=== PATIENT | male | born 1950 | race Caucasian/White ===

== ENCOUNTER 2019-10-09 09:00 | Outpatient (RCR) | payer OTHER, SELFPAY ==
--- NOTE | 2019-09-11 14:29 | PTOPEVAL ---
PHYSICAL THERAPY EVALUATION AND PLAN OF CARE Thank you for referring this patient to [facility]. I recommend Mario participate in skilled PT 2x/week for 4 weeks. Please review, sign, date and return this plan of care KRISS. I agree with and certify that the following plan of care is medically necessary. Referring Physician Date Attending Provider: Nevaeh Michaud DO Evaluation Outpatient Past Medical History Neurological History Hx Parkinson's Disease Yes: tremors; testing for reliability Cardiovascular History Hx Angina Yes Hx Cardiac Surgery Yes Hx Chest Pain Yes Hx Coronary Artery Bypass Graft Yes Hx Coronary Stent Yes: 5x Hx Hypercholesterolemia Yes Hx Hypertension Yes Respiratory History Hx Asthma Yes: cat asthma Gastrointestinal History Hx Gastroesophageal Reflux Disease Yes Hx Hernia Yes: bilateral inguinal hernia Genitourinary History Hx Kidney Stones Yes Hx Renal Disease Yes: stage 3 Musculoskeletal History Hx Arthritis Yes Hx Back Injury Yes Hx Back Pain Yes Hx Degenerative Disk Disease Yes Hx Fractures Yes: metacarpal Rt #3/LT [place] Hx Other Musculoskeletal Disorders Yes: ruptured discs 3-4-5/left thumb tendon surg Hematological History Hx Hematological Disorders No Significant History Endocrine History Hx Diabetes Yes: managed with insulin/ medication HEENT History Hx Cataracts Yes: bilateral cataracts removed Integumentary History Hx Other Skin Disorders Yes: toenails 1 & 2 removed bilat feet/Rad Enma (rash) Reproductive History Hx Reproductive Disorders No Significant History Psychosocial History Hx Psychiatric Disorders No Significant History Pain History History of Any Previous or Ongoing No Significant History Instance of Pain Anesthesia History Hx Anesthesia Reactions No Significant History Evaluation Information Problem Diagnosis chronic low back pain Onset 08/16/2019 Subjective Information Mario is here today following Query Text:As Reported By Patient/ an episode of severe low back Family pain that was radiating into his abdomen. He was diagnosed with a herniated disc in low back, but Dr. Lizarraga confirmed there is no hernatied disc. He currentl states he feels back to normal but that his
--- NOTE | 2019-10-09 09:44 | PTOPEVAL ---
PHYSICAL THERAPY DISCHARGE REPORT Thank you for referring this patient to [facility]. I recommend discharge from PT at this time with HEP. Patient agrees to continue HEP and he has the support of his . Please review, sign, date and return this discharge summary KRISS. I agree with and certify that the following plan of care is medically necessary. Referring Physician Date Attending Provider: Nevaeh Michaud DO Discharge Diagnosis chronic low back pain Onset 08/16/2019 Subjective Information Mario is here participating Query Text:As Reported By Patient/ in physical therapy after Family participating in 8 visits of physical therapy for back pain and impaired balance. Reports his back is ok. He went to [employer] yesterday and walking from car to park, slowly and had to rest but made it. Timing of Pain Assessment Pre-Treatment Self Report Self Report Pain Level 0 Lumbar ROM Lumbar Flexion Active Ankle Query Text:Hands to: Lumbar Extension (0-40) 6 Lateral Rotation Right (0-45) 25 Lateral Rotation Left (0-45) 25 Hip Strength Bilateral Hip Flexion Strength 4 Good Hip Extension Strength 4- Good - Hip Abduction Strength 3 Fair Hip Adduction Strength 3+ Fair + Knee Strength Bilateral Knee Flexion Strength 5 Normal Knee Extension Strength 5 Normal Balance Assessment Sitting to Standing Independent w/out Hands Unsupported Stance Ability Safely- 2 minutes Sitting Unsupported, Feet on Floor Safely- 2 minutes Standing to Sitting Assist, Control w/Hands Transfer Ability Safely, Hand Use Unsupported Stance- Eyes Closed Safely, 10 seconds Unsupported Stance- Feet Together Independent, 1 minute Reaching Forward while Standing Safely, 5 inches dining room supervisor Object From Floor Independent/Safe Look Behind Shoulder - Standing Shifts Weight Unilateral Turning 360 Degrees Turns Bilateral, < 4 secs Unsupported Stance, Alternating Feet on (I)- 8 Steps in 20 secs Stair Unsupported Tandem Stance Small Step- 30 seconds Unilateral Leg Stance Lifts Leg/Holds > 3 secs MCNAIR Balance Evaluation Total Score 48/56 Timed Up and Go Test (TUG) (Seconds) 8 Assistive Devices None 5 Time Sit to Stand Time in Seconds 17.81 Gait Assessment Total Distance Walked (feet) 454 Number of Breaks Required 0 2 Minute Walk Test Comments 3.7ft/second Clinical Summary
== END 2019-10-09 11:14 | disposition home or self-care (01) ==
LOC: ANHPT 09:00
PROVIDERS: PCP Family Medicine; Visit Provider Family Medicine
DX: M54.5 Low back pain (principal); G89.29 Other chronic pain
CPT/HCPCS: 97110; 97162

== ENCOUNTER → 2021-01-23 00:25 | Outpatient (CLI) | payer OTHER, SELFPAY ==
[2021-01-23 19:27] LABS: SARS-CoV-2 RNA PCR Negative
== END ==
PROVIDERS: PCP Family Medicine; Visit Provider Internal Medicine Gastroenterology
DX: Z01.812 Encounter for preprocedural laboratory examination (principal); Z20.822 Contact with and (suspected) exposure to COVID-19
CPT/HCPCS: C9803; U0003; U0005

== ENCOUNTER 2021-01-26 00:50 | Day surgery (SDC) | payer OTHER, SELFPAY ==
[2021-01-13 13:17] VITALS: BMI 29.6
[2021-01-26 07:24] VITALS: BP 126/64; PULSE 63; RESP 18; TEMP 35.9; O2SAT 99; BMI 28.1
[2021-01-26] MEDS: LACTATED RINGERS 1,000 ML 150 ML IV CONT (07:31)
[2021-01-26 07:44] LABS: Glucose Point of Care 168 mg/dl (65-105)
--- NOTE | 2021-01-26 07:48 | WPDGICN ---
Assessment and Plan Assessment and plan (1) Screening for colon cancer: Code(s): Z12.11 - Encounter for screening for malignant neoplasm of colon Status: Acute Assessment and Plan: Patient presents for screening colonoscopy is been 10 years since last exam. He has lost some weight. No other specific GI symptoms encountered. (2) Weight loss: Code(s): R63.4 - Abnormal weight loss Status: Acute GI Consult Note Consult date/time: 01/26/21 07:48 HPI: Mario Trivedi is a 70 year old male presents for follow-up colonoscopy. Patient's last exam was 2008. Patient's current weight appetite bowel movements are normal. Patient denies abdominal pain. Does report some weight loss over recent years. Family history is noncontributory. He denies any abdominal pain or bleeding. Review of Systems Review of Systems: All systems reviewed & are unremarkable except as noted in HPI and below PMFSH Past Medical History Medical History Asthma Atherosclerotic heart disease of [place]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 pectoris Bronchitis CAD (coronary artery disease) Chronic back pain Chronic kidney disease, stage 3 (moderate) GERD (gastroesophageal reflux disease) HTN (hypertension) Hypertensive chronic kidney disease with stage 1 through stage 4 chronic kidney disease, or unspecified chronic kidney disease Hypoglycemia Metabolic syndrome Mixed hyperlipidemia Normal colonoscopy (~04/28/09) Old myocardial infarction Other spondylosis, lumbar region Polyneuropathy in diabetes Right hand fracture Type 2 diabetes mellitus with kidney complication, 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tance use type: does not use Living arrangements: with family Gender identity (if verbalized by the patient): Male Spiritual care concerns: No Agree to blood products: Yes Meds Home Medications and Allergies Home Medications Medication Instructions Recorded Confirmed Type aspirin 81 mg tablet,delayed 81 mg PO HS 06/17/19 01/13/21 History release carvedilol phosphate 40 mg 40 mg PO DAILY 06/17/19 01/26/21 History capsule,[id number] multiphase cholecalciferol (vitamin D3) 125 5,000 unit PO DAILY 06/17/19 01/13/21 History mcg (5,000 unit) tablet clopidogrel 75 mg tablet 75 mg PO DAILY 06/17/19 01/26/21 History insulin aspart U-100 100 unit/mL 20 unit SUB-Q TID 06/17/19 01/13/21 History (3 mL) subcutaneous pen insulin syringe-needle U-100 0.5 #1 each 06/17/19 06/23/20 History mL 30 gauge x 1/2 metformin 1,000 mg tablet 1,000 mg PO BID 06/17/19 01/13/21 History Jardiance 10 mg PO DAILY 08/09/19 01/13/21 History cyanocobalamin (vitamin B-12) 100 mcg PO HS 08/09/19 01/13/21 History glucagon 1 mg SUBCUT PRN PRN 08/09/19 01/13/21 History nitroglycerin 0.4 mg SUBLINGUAL PRN PRN 08/09/19 01/13/21 History primidone 50 mg tablet 50 mg PO .QHS tablet 10/15/19 01/13/21 History insulin degludec 100 unit/mL (3 36 unit SUB-Q .QHS ml 02/17/20 01/21/21 History mL) subcutaneous pen amlodipine 5 mg-benazepril 20 mg 1 cap PO HS 06/23/20
--- NOTE | 2021-01-26 08:11 | WPDANESEPPF ---
Anes - Initial Pre Proc Eval Procedure: Operation Date: 01/26/21 08:30 Proposed Procedures p Screening Colonoscopy - Mac Burgos MD Date/Time: 01/26/21 08:11 Surgeon: Mac Burgos MD Pre Op Diagnosis: neoplasm screening Patient Data Age: 70 Gender: M Height: 1.83 m Weight: 94.2 kg Last Vital Signs Temp 96.7 F L 01/26/21 07:24 Pulse 63 01/26/21 07:24 Resp 18 01/26/21 07:24 BP 126/64 01/26/21 07:24 Pulse Ox 99 01/26/21 07:24 Allergies Allergy/AdvReac Type Severity Reaction Status Date / Time atorvastatin Allergy Unknown myalgias,pa Verified 01/26/21 07:22 rathesias Home Medications Medication Instructions Recorded Confirmed Type aspirin 81 mg tablet,delayed 81 mg PO HS 06/17/19 01/13/21 History release carvedilol phosphate 40 mg 40 mg PO DAILY 06/17/19 01/26/21 History capsule,[id number] multiphase cholecalciferol (vitamin D3) 125 5,000 unit PO DAILY 06/17/19 01/13/21 History mcg (5,000 unit) tablet clopidogrel 75 mg tablet 75 mg PO DAILY 06/17/19 01/26/21 History insulin aspart U-100 100 unit/mL 20 unit SUB-Q TID 06/17/19 01/13/21 History (3 mL) subcutaneous pen insulin syringe-needle U-100 0.5 #1 each 06/17/19 06/23/20 History mL 30 gauge x 1/2 metformin 1,000 mg tablet 1,000 mg PO BID 06/17/19 01/13/21 History Jardiance 10 mg PO DAILY 08/09/19 01/13/21 History cyanocobalamin (vitamin B-12) 100 mcg PO HS 08/09/19 01/13/21 History glucagon 1 mg SUBCUT PRN PRN 08/09/19 01/13/21 History nitroglycerin 0.4 mg SUBLINGUAL PRN PRN 08/09/19 01/13/21 History primidone 50 mg tablet 50 mg PO .QHS tablet 10/15/19 01/13/21 History insulin degludec 100 unit/mL (3 36 unit SUB-Q .QHS ml 02/17/20 01/21/21 History mL) subcutaneous pen amlodipine 5 mg-benazepril 20 mg 1 cap PO HS 06/23/20 01/13/21 History capsule rosuvastatin 5 mg tablet 5 mg PO HS #30 tablet 12/28/20 01/13/21 Rx Laboratory Tests 01/26/21 07:33 POC Capillary Glucose 168 mg/dl H mg/dl (65-105) Patient hx anesthesia problems: none Family hx anesthesia problems: none PMFSH Past Medical History Medical History Asthma Atherosclerotic heart disease of [place]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 pectoris Bronchitis CAD (coronary artery disease) Chronic back pain Chronic kidney disease, stage 3 (moderate) GERD (gastroesophageal reflux disease) HTN (hypertension) Hypertensive chronic kidney disease with stage 1 through stage 4 chronic kidney disease, or unspecified chronic kidney disease Hypoglycemia Metabolic syndrome Mixed hyperlipidemia Normal colonoscopy (~04/28/09) Old myocardial infarction Other spondylosis, lumbar region Polyneuropathy in diabetes Right hand fracture Type 2 diabetes mellitus with kidney complication, 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tance use type: does not use Living arrangements: with family Gender identity (if verbalized by the patient): Male Spiritual care concerns: No Agree to blood products: Yes Anes - Eval Final PreProcedure Day of Procedure 01/26/21 08:11 Patient
[2021-01-26] MEDS: SIMETHICONE ORAL SUSPENSION 20 MG/0.3 ML 30 ML BOTTLE 0.6 ML IRRIGATION (08:51)
[2021-01-26 09:02] VITALS: BP 101/64; PULSE 64; RESP 19; O2SAT 99
[2021-01-26 09:12] VITALS: BP 110/65; PULSE 62; RESP 22; O2SAT 99
[2021-01-26 09:23] VITALS: BP 128/74; PULSE 64; RESP 20; O2SAT 99
[2021-01-26 09:43] LABS: Glucose Point of Care 161 mg/dl (65-105)
== END 2021-01-26 09:50 | disposition home or self-care (01) ==
PROVIDERS: PCP Family Medicine; Visit Provider Internal Medicine Gastroenterology
PROC: 0DJD8ZZ Inspection of Lower Intestinal Tract, Via Natural or Artificial Opening Endoscopic (ICD-10-PCS; CPT 45378; principal; 2021-01-26 08:30)
DX: Z12.11 Encounter for screening for malignant neoplasm of colon (principal); R63.4 Abnormal weight loss; K63.5 Polyp of colon; K64.8 Other hemorrhoids; I12.9 Hypertensive chronic kidney disease with stage 1 through stage 4 chronic kidney disease, or unspecified chronic kidney disease; N18.30 Chronic kidney disease, stage 3 unspecified; I25.10 Atherosclerotic heart disease of native coronary artery without angina pectoris; J45.909 Unspecified asthma, uncomplicated; E11.22 Type 2 diabetes mellitus with diabetic chronic kidney disease; E11.39 Type 2 diabetes mellitus with other diabetic ophthalmic complication; E11.29 Type 2 diabetes mellitus with other diabetic kidney complication; E78.2 Mixed hyperlipidemia; K21.9 Gastro-esophageal reflux disease without esophagitis; I25.2 Old myocardial infarction; E11.42 Type 2 diabetes mellitus with diabetic polyneuropathy; Z95.5 Presence of coronary angioplasty implant and graft; Z79.82 Long term (current) use of aspirin; Z79.4 Long term (current) use of insulin; Z79.84 Long term (current) use of oral hypoglycemic drugs
CPT/HCPCS: 45385; 82948; 88305; J2704; J7120

== ENCOUNTER 2021-07-09 10:24 | Observation (INO) | payer OTHER, SELFPAY ==
[2021-07-09] VITALS (29 sets, daily range): BP systolic 120–184; BP diastolic 65–93; PULSE 64–69; RESP 12–18; TEMP 36.5; O2SAT 95–100; BMI 27.6
--- NOTE | ~2021-07-09 | CT_ITS ---
EXAMINATION: CT brain wo con EXAM DATE: 07/09/2021 15:57 INDICATION: Weakness, fatigue for several weeks. Parkinson's. TECHNIQUE: Spiral CT of the head was performed without contrast. Axial, coronal and sagittal images were reviewed. The dose-length product (DLP) for this examination was 681.00 mGy-cm. The exposure w as tailored according to patient size, and iterative reconstruction (ASIR) was used as additional dos e reduction technique. There is no prior study for comparison. FINDINGS: There is no acute intraparenchymal hemorrhage. No evidence of intraparenchymal brain mass lesion. No evidence of acute infarction. Please note that initial head CT has limited sensitivity f or small or acute infarctions. There is mild periventricular and subcortical hypodensity, nonspecific but probably related to small vessel ischemic disease. There is mild to moderate prominence of the sulci and ventricles related to cerebral atrophy. There is intracranial carotid arteriosclerosis. There are no extra-axial collections. There is no mass effect or midline shift. Patient has had bi lateral ocular lens surgery. Soft tissue is unremarkable. The visualized sinuses and mastoid air ce lls are well aerated. IMPRESSION: 1. No acute intracranial findings. 2. Chronic age related findings. Reviewed, dictated and finalized at location B. ICIAN OFFICE ASSISTANT
--- NOTE | ~2021-07-09 | XR_ITS ---
EXAMINATION: XR chest 1V portable 07/09/2021 13:38 INDICATION: Weakness. PROCEDURE: AP portable chest COMPARISON: Comparison to multiple prior studies sequentially, with oldest reviewed study dated 02/17. FINDINGS: The lungs are clear. The cardiomediastinal silhouette is within normal limits. There are no pleural effusions. There is no pneumothorax suspected. IMPRESSION: 1: NO ACUTE CARDIOPULMONARY DISEASE. Reviewed, dictated and finalized at location A. K DRIVER HEAVY
--- NOTE | 2021-07-09 13:07 | ECG_ITS ---
Measurements Intervals [place] Rate: 64 P: 14 WI: 154 QRS: 41 QRSD: 93 T: 29 QT: 421 QTc: 436 Interpretive Statements SINUS RHYTHM BASELINE ARTIFACT- I, II, III, AVR, V5 NORMAL ECG Electronically Signed On 07-09-2021 13:45:36 RADIOGRAPHER TECHNOLOGIST by Hal Harp D.O.
--- NOTE | 2021-07-09 13:29 | ED.RECABL ---
HPI - Recheck/Abnormal Lab/Rx General Chief Complaint: Recheck/Abnormal Lab/Rx Stated Complaint: Low Blood Count Time Seen by Provider: 07/09/21 12:33 Source: patient, family, RN notes reviewed and old records reviewed Mode of arrival: ambulatory Limitations: no limitations History of Present Illness HPI narrative: This is a 71 year old male with history of chronic anemia, DM, chronic kidney disease who presents for evaluation of anemia and possible blood transfusion. Patient had blood word drawn 3 days ago by his PCP and it showed his hemoglobin to be 8.3. He states his PCP told him to come to ER for blood transfusion. He denies any gross blood loss. He reports fatigue and shortness of breath for 1 year. His states patient was started a new medication weeks ago and 2 weeks ago he was having nausea and vomiting. He denies having nausea, vomiting or diarrhea in 2 weeks. He reports hard stool but denies melena. He denies any chest pain, cough or fever. He states he has never been told that he was anemic before. Related Data Home Medications Medication Instructions Recorded Confirmed aspirin 81 mg tablet,delayed 81 mg PO HS 06/17/19 07/09/21 release cholecalciferol (vitamin D3) 125 5,000 unit PO DAILY 06/17/19 07/09/21 mcg (5,000 unit) tablet clopidogrel 75 mg tablet 75 mg PO DAILY 06/17/19 07/09/21 insulin aspart U-100 100 unit/mL 20 unit SUB-Q TID 06/17/19 07/09/21 (3 mL) subcutaneous pen insulin syringe-needle U-100 0.5 #1 each 06/17/19 07/09/21 mL 30 gauge x 1/2 Jardiance 10 mg PO DAILY 08/09/19 07/09/21 cyanocobalamin (vitamin B-12) 100 mcg PO HS 08/09/19 07/09/21 glucagon 1 mg SUBCUT PRN PRN 08/09/19 07/09/21 nitroglycerin 0.4 mg SUBLINGUAL PRN PRN 08/09/19 07/09/21 primidone 50 mg tablet 50 mg PO .QHS tablet 10/15/19 07/09/21 insulin degludec 200 unit/mL (3 30 unit SUBCUT DAILY ml 07/09/21 07/09/21 mL) subcutaneous pen metformin 500 mg tablet 500 mg PO BID 07/09/21 07/09/21 propranolol 40 mg tablet 40 mg PO Q12H 07/09/21 07/09/21 Allergies Allergy/AdvReac Type Severity Reaction Status Date / Time atorvastatin Allergy Unknown myalgias,pa Verified 07/09/21 09:09 rathesias Review of Systems Review of Systems: All systems reviewed & are unremarkable except as noted in HPI and below PMFSH Past Medical History Medical History Asthma Atherosclerotic heart disease of [place]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 pectoris Bronchitis CAD (coronary artery disease) Chronic back pain Chronic kidney disease, stage 3 (moderate) GERD (gastroesophageal reflux disease) Hepatitis C antibody test negative (01/17/17) HTN (hypertension) Hypertensive chronic kidney disease with stage 1 through stage 4 chronic kidney disease, or unspecified chronic kidney disease Hypoglycemia Metabolic syndrome Mixed hyperlipidemia Normal colonoscopy (~04/28/09) Old myocardial infarction Other spondylosis, lumbar region Polyneuropathy in diabetes Right hand fracture Type 2 diabetes mellitus with kidney complication, 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
[2021-07-09 14:01] LABS: Alanine Aminotransferase 11 U/L (4-50); Albumin Level 3.7 g/dL (3.5-5.1); Alkaline Phosphatase 67 U/L (38-126); Anion Gap 9 mmol/L (8-16); Aspartate Amino Transferase 25 U/L (17-59); Bilirubin,Total 0.5 mg/dL (0.2-1.3); Blood Urea Nitrogen 40 mg/dL (9-20); Calcium 8.5 mg/dL (8.4-10.2); Carbon Dioxide 19 mmol/L (22-30); Chloride 102 mmol/L (98-107); Estimated CRCL calculation 22 ml/min; Estimated Glomerular Filt Rate 21; Glucose 88 mg/dL (65-110); Potassium 4.2 mmol/L (3.4-5.0); Sodium 130 mmol/L (137-145)
[2021-07-09] MEDS: SODIUM CHLORIDE 0.9% IV 500 ML 999 ML IV CONT (15:00)
[2021-07-09 15:03] LABS: Folic Acid 9.2 ng/mL (2.76->20); Vitamin B12 > 1000.0 pg/mL (239-931)
[2021-07-09 15:12] LABS: Basophils Percent Auto 0.4 % (0.2-1.2); Eosinophils Absolute Auto 0.3 K/mm3 (0-0.3); Eosinophils Percent Auto 4.9 % (0-4.4); Hematocrit 24.8 % (42.0-52.0); Hemoglobin 8.1 g/dL (14.0-18.0); Immature Granulocyte Absolute 0.02 K/mm3 (0.00-0.031); Immature Granulocyte Percent A 0.4 % (0-0.5); Lymphocytes Absolute Auto 1.64 K/mm3 (0.9-3.2); Lymphocytes Percent Auto 32.3 % (18.3-44.2); Mean Corpuscular HGB Conc 32.7 g/dl (32-36); Mean Corpuscular Hemoglobin 32.9 pg (26-34); Mean Corpuscular Volume 100.8 fl (80-100); Mean Platelet Volume 10.6 fl (7.4-10.4); Monocytes Absolute Auto 0.2 K/mm3 (0.1-0.6); Monocytes Percent Auto 4.3 % (2.6-8.5); Neutrophils Absolute Auto 2.9 K/mm3 (1.3-6.7); Neutrophils Percent Auto 57.7 % (45.5-73.1); Platelet Count Result 208 k/mm3 (150-375); Red Blood Count 2.46 M/mm3 (4.6-6.20); Red Cell Distribution Width 15.5 % (11.5-14.5); White Blood Count 5.1 K/mm3 (4.5-10.0)
[2021-07-09 15:30] LABS: INR 0.9; Partial Thromboplastin Time 27.9 SECONDS (22.3-36.8); Prothrombin Time 12.4 Seconds (11.1-14.7)
--- NOTE | 2021-07-09 16:06 | PC.NURSE ---
patient refused catheter. He is still unable to provide urine sample. Rn notified. Hugh ledesma ed tech
[2021-07-09 16:46] LABS: Add Urine Microscopic? YES; Appearance Urine Clear (Clear); Bilirubin Urine Negative (Negative); Blood Urine Negative (Negative); Color Urine Yellow (Yellow); Glucose Urine UA 3+ mg/dL (Negative); Ketones Urine Negative (Negative); Leukocyte Esterase Ur Negative LEU/UL (Negative); Mucus Urine Rare /lpf; Nitrate Urine Negative (Negative); Protein Urine 3+ mg/dL (Negative); RBC Urine 0-2 /hpf (0-2); Specific Grav Ur 1.014 (1.001-1.035); Urobilinogen Urine Negative mg/dL (<2.0)
[2021-07-09 18:19] LABS: Iron 103 ug/dL (49-181)
[2021-07-09 18:28] LABS: Percent Iron Saturation 42 % (20-50)
[2021-07-09 20:59] LABS: Glucose Point of Care 212 mg/dl (65-105)
[2021-07-09] MEDS: SODIUM CHLORIDE 0.9% IV 1,000 ML 125 ML IV CONT (22:55)
--- NOTE | 2021-07-09 23:13 | ADMGEN ---
This patient, Mario Trivedi, was admitted to [facility] Surg Room 302-01. Patient/family oriented to hospital policies and general routines including ID bracelet, bed and alarms, visiting hours, pain management, procedures, bathroom and other care routines, personal items, smoking policy, room service/diet, and visiting hours. Information on how to activate the Rapid Response Team has been discussed. Patient/Family are encouraged to report perceived risks to care and to ask questions if they do not understand what they are told or what they should do.
--- NOTE | 2021-07-09 23:55 | PM.EVENT ---
Event Note Event Note Event Note: I spoke with this gentleman in the Emergency about being admitted. The patient stated that the last time he was admitted he received a ?surprise Bill? and that the hospitalist here were not contracted with his insurance. The patient wants to see somebody that is contracted with his insurance. I explained that the ER physician and hospitalist work for the same contacted group. The patient was waiting to me and told me to stop talking and told me good bye. He told me to send somebody and that would be contracted with his insurance. The attempted to call their insurance company to see if the hospitalist was contacted to their insurance. The patient was wanting to sign out against medical advice. I explained that perhaps the ER physician could recheck his lab work and he could return to [facility] where his news gathering technician is. I then spoke to the emergency room doctor who spoke with his . The patient finally agreed to be admitted into the hospital. I spoke to my collaborative and she recommended since it is so close to midnight that perhaps the patient could be a short-stay and if he would get filled it would be for 1 day. I explained that I could continue his home medications in order some labs for the morning and that I did not do an H and P on the patient as the patient was afraid that he would be billed for today.
[2021-07-10 05:58] VITALS: BP 144/50; PULSE 67; RESP 18; TEMP 36.3; O2SAT 100
[2021-07-10 06:27] LABS: Basophils Percent Auto 0.4 % (0.2-1.2); Eosinophils Absolute Auto 0.4 K/mm3 (0-0.3); Eosinophils Percent Auto 8.2 % (0-4.4); Hematocrit 22.7 % (42.0-52.0); Hemoglobin 7.4 g/dL (14.0-18.0); Immature Granulocyte Absolute 0.02 K/mm3 (0.00-0.031); Immature Granulocyte Percent A 0.4 % (0-0.5); Lymphocytes Absolute Auto 2.02 K/mm3 (0.9-3.2); Lymphocytes Percent Auto 44.7 % (18.3-44.2); Mean Corpuscular HGB Conc 32.6 g/dl (32-36); Mean Corpuscular Hemoglobin 33.6 pg (26-34); Mean Corpuscular Volume 103.2 fl (80-100); Mean Platelet Volume 10.5 fl (7.4-10.4); Monocytes Absolute Auto 0.2 K/mm3 (0.1-0.6); Monocytes Percent Auto 5.3 % (2.6-8.5); Neutrophils Absolute Auto 1.9 K/mm3 (1.3-6.7); Platelet Count Result 183 k/mm3 (150-375); Red Cell Distribution Width 15.3 % (11.5-14.5); White Blood Count 4.5 K/mm3 (4.5-10.0)
[2021-07-10 06:37] LABS: Lactic Acid Reflex < 0.5 mmol/L (0.7-2.1)
[2021-07-10 06:38] LABS: Alanine Aminotransferase 9 U/L (4-50); Albumin Level 2.9 g/dL (3.5-5.1); Alkaline Phosphatase 63 U/L (38-126); Anion Gap 5 mmol/L (8-16); Aspartate Amino Transferase 17 U/L (17-59); Bilirubin,Total 0.2 mg/dL (0.2-1.3); Blood Urea Nitrogen 35 mg/dL (9-20); Carbon Dioxide 22 mmol/L (22-30); Chloride 105 mmol/L (98-107); Estimated CRCL calculation 23 ml/min; Estimated Glomerular Filt Rate 21; Glucose 84 mg/dL (65-110); Potassium 3.7 mmol/L (3.4-5.0); Sodium 132 mmol/L (137-145)
[2021-07-10 07:47] LABS: Glucose Point of Care 67 mg/dl (65-105)
[2021-07-10 08:00] VITALS: O2SAT 100
[2021-07-10 12:03] LABS: Glucose Point of Care 190 mg/dl (65-105)
--- NOTE | 2021-07-10 12:10 | PM.CNNEP ---
Assessment and Plan Assessment and plan (1) INGRIS (acute kidney injury): Code(s): N17.9 - Acute kidney failure, unspecified Status: Acute Assessment and Plan: acute insult versus progression of disease(?) baseline creatinie as noted (see #2) however, trend of labs noted: May 2021 - 2.47mg/dl June 2021 - 2.89mg/dl 07/09/21 - 3.0mg/dl with IVFs, creatinine down to 2.8mg/dl per primary project administrative assistant notes, considering renal biopsy (2) Stage 3b chronic kidney disease: Code(s): N18.32 - Chronic kidney disease, stage 3b Status: Acute Assessment and Plan: baseline creatinine runs ~ 1.8 - 2.1mg/dl thought to be secondary to diabetic nephropathy follows with [facility] nephrology (3) Anemia: Code(s): D64.9 - Anemia, unspecified Status: Acute Assessment and Plan: chronic issue and present even prior to kidney dysfunction follow trend of H/H PRBC transfusion per protocol (4) Hypertension: Code(s): I10 - Essential (primary) hypertension Status: Chronic Assessment and Plan: reasonable control but not optimal follow trend of hemodynamics (5) Diabetes: Code(s): E11.9 - Type 2 diabetes mellitus without complications Status: Chronic Assessment and Plan: follow accuchecks glycemic control Will continue to follow. History of Present Illness Reason for Consult Consult date: 07/10/21 Reason for consult: acute renal failure (on chronic kidney disease versus progression of CKD) Chief Complaint Chief complaint: Weakness, Acute on Chronic Renal Failure, Chronic History of Present Illness Narrative: The patient is a 71 year old male with a past medical history as outlined below who presented to [facility] ER for evaluation of anemia and possible blood transfusion. The patient recently saw his primary care physician and had blood work done at that time it was noted his hemoglobin was 8.3. His primary care physician instructed the patient to go to the ER as he may require a packed red blood cell transfusion given these findings. He gave no history with regard to melena or hematochezia or any other symptoms of GI blood loss. He does report some fatigue but that it has been longstanding issue for last year so. He gave no other systemic complaints with regard to chest pain, shortness of breath cough fever chills nausea or vomiting. Workup and evaluation emergency room demonstrated the patient to be hemodynamically stable and repeat labs confirmed his anemia but also demonstrated some worsening of his baseline chronic kidney disease. As it would seem he did not meet the requirement for a packed red blood cell transfusion, he reluctantly was admitted for IV fluid hydration given his higher than baseline creatinine. Since his admission, his kidney function is slightly better but he otherwise has no other acute complaints voiced. He is asking if he can be discharged since the whole reason he presented to the hospital was for a packed red blood cell transfusion which apparently is not needed /required at this time. Renal consultation was requested due to his acute kidney injury on chronic kidney disease (versus progression of chronic kidney disease). The patient normally follows with [facility] for management of his chronic kidney disease and on his last office visit, it was noted that his creatinine was somewhat higher than baseline. It was not entirely clear why this was the case although there was a concern for some other possible pathology on top of his known extensive history of diabetes that may be playing a role. It was decided to continue to optimize his blood pressure and diabetes control and reassess what his repeat labs which show on his next office visit next month before contemplating possibly considering a renal biopsy. Currently, at the time my visit, he appears to be in no acute distress. Review of
[2021-07-10 12:11] LABS: Hematocrit 24.3 % (42.0-52.0); Hemoglobin 8.1 g/dL (14.0-18.0)
[2021-07-10] MEDS: SODIUM CHLORIDE 0.9% IV 1,000 ML 70 ML IV CONT (12:15)
[2021-07-10 12:26] LABS: Albumin Level 3.3 g/dL (3.5-5.1); Anion Gap 7 mmol/L (8-16); Blood Urea Nitrogen 34 mg/dL (9-20); Calcium 8.4 mg/dL (8.4-10.2); Carbon Dioxide 21 mmol/L (22-30); Chloride 102 mmol/L (98-107); Estimated CRCL calculation 24 ml/min; Estimated Glomerular Filt Rate 22; Glucose 197 mg/dL (65-110); Phosphorus 3.9 mg/dL (2.5-4.5); Sodium 130 mmol/L (137-145)
[2021-07-10 12:37] VITALS: PULSE 79
[2021-07-10] MEDS: EMPAGLIFLOZIN 10 MG TABLET PO (12:37)
[2021-07-10] MEDS: PROPRANOLOL HCL 40 MG TABLET PO (12:37)
[2021-07-10] MEDS: CLOPIDOGREL BISULFATE 75 MG TABLET PO (12:37)
--- NOTE | 2021-07-10 15:01 | PM.SD2 ---
Same Day Admit/Disch: HPI History of Present Illness Chief complaint: Weakness, Acute on Chronic Renal Failure, Chronic Narrative: Mario Trivedi is a 71 year old male with CKD, DM and HTN here for anemia. Patient states that he had blood work drawn few days prior to admission and found have a hemoglobin of 8.3. Patient has chronic anemia with hemoglobin running in the 9-10 range. He has never had an EGD but did have a colonoscopy on January 26 showing a transverse colon polyp and internal hemorrhoids. Patient takes a baby aspirin and Plavix but is not on any other anticoagulation therapy. He denies any melena or hematochezia. No hematuria. No abdominal pain. He denies any takes ibuprofen, Aleve or Naprosyn. Patient has been fatigued over the past few months. He has never had COVID. He has had both COVID vaccines and the booster. He does have nausea with ?motion sickness? usually in the morning. He was started on oral bicarb back in March because of elevated potassium but this was stopped a few days ago. He believes the bicarb was causing his nausea and vomiting. Patient was placed on propranolol about 3-4 months ago for his tremors. This was increased to 40 mg b.i.d. about 2 months ago. He was on Coreg but that was stopped the propranolol was started. Patient has also had unintentional weight loss of about 60 lb over the past year. He has not been eating very much due to lack of appetite and more recently with the nausea and vomiting. No other recent complaints. Denies any dysuria, myalgias, numbness or tingling in his extremities, or diarrhea. He does have constipation issues. Because of the anemia patient states his primary care doctor told him to go to the emergency room for blood transfusion. PATIENT WAS PLACED UNDER OBSERVATION STATUS [facility] Past Medical History Medical History Asthma Atherosclerotic heart disease of [place]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 pectoris Bronchitis CAD (coronary artery disease) Chronic back pain Chronic kidney disease, stage 3 (moderate) GERD (gastroesophageal reflux disease) Hepatitis C antibody test negative (01/17/17) HTN (hypertension) Hypertensive chronic kidney disease with stage 1 through stage 4 chronic kidney disease, or unspecified chronic kidney disease Hypoglycemia Metabolic syndrome Mixed hyperlipidemia Normal colonoscopy (~04/28/09) Old myocardial infarction Other spondylosis, lumbar region Polyneuropathy in diabetes Right hand fracture Type 2 diabetes mellitus with kidney complication, 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 He nominated his to be the individual would make medical decisions for him if he is unable. He denies any alcohol or drug use. He is lifelong nonsmoker. Smoking status: Never smoker Alcohol intake: never Substance use: never Substance use type: does not use Gender identity (if verbalized by the patient): Male Spiritual care concerns: No Agree to blood products: Yes Same Day Admit/Disch: Med Pre-admit Medications Home Medications Medication Instructions Recorded Confirmed Type aspirin 81 mg tablet,delay
[2021-07-10 15:05] LABS: Glucose Point of Care 271 mg/dl (65-105)
[2021-07-10 15:16] VITALS: BP 152/84; PULSE 83; RESP 18; TEMP 36.4; O2SAT 100
== END 2021-07-10 16:20 | disposition home or self-care (01) ==
LOC: ANHED 12:37 → ANH3MEDSUR 23:57
PROVIDERS: Nurse Practitioner; Admitting Provider Internal Medicine; Emergency Provider General Practice; PCP Family Medicine; Visit Provider Internal Medicine
DX: D64.9 Anemia, unspecified (principal); N17.9 Acute kidney failure, unspecified; I12.9 Hypertensive chronic kidney disease with stage 1 through stage 4 chronic kidney disease, or unspecified chronic kidney disease; E11.22 Type 2 diabetes mellitus with diabetic chronic kidney disease; N18.32 Chronic kidney disease, stage 3b; Z79.4 Long term (current) use of insulin; Z79.899 Other long term (current) drug therapy; G25.0 Essential tremor; R53.83 Other fatigue
CPT/HCPCS: 36415; 70450; 71045; 80053; 80069; 81001; 82607; 82746; 82948; 83540; 83550; 83605; 83735; 84443; 85014; 85018; 85025; 85610; 85730; 86850; 86900; 86901; 93005; 96360; 96361; 99285; A9270; G0378; J1815; J7030; J7040

== ENCOUNTER 2021-07-13 09:23 | Outpatient (CLI) | payer OTHER, SELFPAY ==
[2021-07-13 09:56] LABS: Hematocrit 26.2 % (42.0-52.0); Hemoglobin 8.5 g/dL (14.0-18.0); Mean Corpuscular HGB Conc 32.4 g/dl (32-36); Mean Corpuscular Hemoglobin 33.7 pg (26-34); Mean Platelet Volume 10.5 fl (7.4-10.4); Platelet Count Result 256 k/mm3 (150-375); Red Blood Count 2.52 M/mm3 (4.6-6.20); Red Cell Distribution Width 15.9 % (11.5-14.5); White Blood Count 7.4 K/mm3 (4.5-10.0)
[2021-07-13 10:09] LABS: Albumin Level 3.5 g/dL (3.5-5.1); Anion Gap 9 mmol/L (8-16); Blood Urea Nitrogen 31 mg/dL (9-20); Calcium 8.5 mg/dL (8.4-10.2); Carbon Dioxide 23 mmol/L (22-30); Chloride 107 mmol/L (98-107); Estimated Glomerular Filt Rate 19; Glucose 148 mg/dL (65-110); Phosphorus 5.2 mg/dL (2.5-4.5); Potassium 4.1 mmol/L (3.4-5.0); Sodium 139 mmol/L (137-145)
== END 2021-07-13 09:24 | disposition home or self-care (01) ==
PROVIDERS: PCP Family Medicine; Visit Provider Internal Medicine
DX: D64.9 Anemia, unspecified (principal); N18.32 Chronic kidney disease, stage 3b
CPT/HCPCS: 36415; 80069; 85027

== ENCOUNTER 2022-04-28 16:25 | Emergency (ER) | payer OTHER, SELFPAY ==
[2022-04-28 16:36] VITALS: BP 158/90; PULSE 81; RESP 16; TEMP 36.8; O2SAT 99
--- NOTE | 2022-04-28 17:27 | ED.GENADULT ---
HPI - General Adult General Chief complaint: Recheck/Abnormal Lab/Rx <HARJIT Rubin Last Filed: 04/29/22 02:34> Stated complaint: new dialysis cath placed today and reports bleedin <HARJIT Rubin Last Filed: 04/29/22 02:34> Time Seen by Provider: 04/28/22 16:56 <HARJIT Rubin Last Filed: 04/29/22 02:34> Source: patient <HARJIT Rubin Last Filed: 04/29/22 02:34> Mode of arrival: ambulatory <HARJIT Rubin Last Filed: 04/29/22 02:34> Limitations: no limitations <HARJIT Rubin Last Filed: 04/29/22 02:34> History of Present Illness HPI narrative: Patient is a 71-year-old male who presents the ED with report of bleeding from his dialysis catheter port. Patient reports he had a dialysis catheter port placed this morning in his left IJ around 10:[address] Qasim Young at [facility]. He states he had slight oozing of blood around the catheter site initially after the surgery, which would resolve with pressure, however the bleeding became more persistent and severe around 4 PM. They called the office and was referred to the closest ED. Patient has a history of aplastic anemia for which she receives care at [facility]. Patient has a Port-A-Cath in right chest. Denies feeling lightheaded or dizzy. Afebrile. <Dipika Atkins PA-C - Last Filed: 04/29/22 02:34> Related Data Home medications: Home Medications Medication Instructions Recorded Confirmed cholecalciferol (vitamin D3) 125 5,000 unit PO DAILY 06/17/19 12/16/21 mcg (5,000 unit) tablet insulin aspart U-100 100 unit/mL 20 unit subcut TID 06/17/19 12/16/21 (3 mL) subcutaneous pen (Novolog Flexpen U-100 Insulin aspart) insulin syringe-needle U-100 0.5 #1 ea 06/17/19 12/16/21 mL 30 gauge x 1/2 (BD Insulin Syringe Ultra-Fine) cyanocobalamin (vitamin B-12) 100 100 mcg PO DAILY 08/09/19 12/16/21 mcg tablet glucagon 1 mg/0.2 mL subcutaneous 1 mg subcut PRN PRN Hypoglycemia 08/09/19 12/16/21 syringe nitroglycerin 0.4 mg sublingual 0.4 mg sublingual PRN PRN Chest 08/09/19 12/16/21 tablet Pain insulin degludec 200 unit/mL (3 30 unit subcut QPM 07/10/21 12/16/21 mL) subcutaneous pen (Tresiba FlexTouch U-200 insulin) rosuvastatin 20 mg tablet (Crestor) 20 mg PO DAILY 07/19/21 12/16/21 docusate sodium 100 mg capsule 100 mg PO DAILY 12/16/21 12/16/21 insulin aspart U-100 100 unit/mL 1 sliding scale dose subcut 12/16/21 12/16/21 subcutaneous solution (Novolog USEASDIRECTD U-100 Insulin aspart) ondansetron 4 mg disintegrating 4 mg PO Q8H 12/16/21 12/16/21 tablet acyclovir 200 mg capsule 200 mg PO BID 04/21/22 amlodipine 5 mg tablet 5 mg PO DAILY 04/21/22 calcium carbonate 200 mg calcium 200 mg PO BID 04/21/22 04/21/22 (500 mg) chewable tablet (Tums) carvedilol 6.25 mg tablet 6.25 mg PO Q12H 04/21/22 topiramate 25 mg tablet (Topamax) 25 mg PO BID 04/21/22 <Dipika Atkins PA-C - Last Filed: 04/29/22 02:34> Allergies/adverse reactions: Allergies Allergy/AdvReac Type Severity Reaction Status Date / Time atorvastatin Allergy Unknown myalgias,pa Verified 04/21/22 11:26 rathesias <Dipika Atkins PA-C - Last Filed: 04/29/22 02:34> Review of Systems Review of Systems: CONSTITUTIONAL: Denies fever, chills, or sweats. CARDIOVASCULAR: Denies chest pain. RESPIRATORY: Denies dyspnea. SKIN: Reports bleeding from catheter site. NEUROLOGIC: Denies dizziness, lightheadedness, numbness, or weakness. <Dipika Atkins PA-C - Last Filed: 04/29/22 02:34> All systems reviewed & are unremarkable except as noted in HPI and below <Dipika Atkins PA-C - Last Filed: 04/29/22 02:34> FOR[facility]LY [facility], [facility] Past Medical History Medical History: Medical History Asthma Atherosclerotic heart disease of [place]
[2022-04-28 17:40] VITALS: BP 176/89; PULSE 84; RESP 16; O2SAT 97
[2022-04-28 17:59] LABS: Glucose Point of Care 173 mg/dl (65-105)
[2022-04-28 19:34] LABS: Basophils Percent Auto 0.3 % (0.2-1.2); Hematocrit 29.4 % (42.0-52.0); Hemoglobin 9.7 g/dL (14.0-18.0); Immature Granulocyte Absolute 0.05 K/mm3 (0.00-0.031); Immature Granulocyte Percent A 1.6 % (0-0.5); Immature Platelet Fraction Pct 6.7 % (0.9-11.2); Lymphocytes Absolute Auto 1.22 K/mm3 (0.9-3.2); Lymphocytes Percent Auto 39.7 % (18.3-44.2); Mean Platelet Volume 10.8 fl (7.4-10.4); Monocytes Absolute Auto 0.3 K/mm3 (0.1-0.6); Monocytes Percent Auto 8.1 % (2.6-8.5); Neutrophils Absolute Auto 1.5 K/mm3 (1.3-6.7); Neutrophils Percent Auto 50.3 % (45.5-73.1); Nucleated Red Blood Cells Perc 0.7 % (0.0-0.2); Platelet Count Result 100 k/mm3 (150-375); Red Blood Count 3.34 M/mm3 (4.6-6.20); Red Cell Distribution Width 13.5 % (11.5-14.5); White Blood Count 3.1 K/mm3 (4.5-10.0)
[2022-04-28 19:35] VITALS: BP 169/92; PULSE 78; RESP 16; O2SAT 97
[2022-04-28 19:45] LABS: INR 1.1; Partial Thromboplastin Time 30.5 SECONDS (22.3-36.8); Prothrombin Time 14.2 Seconds (11.1-14.7)
[2022-04-28 21:05] VITALS: BP 162/84; PULSE 84; RESP 16; O2SAT 98
== END 2022-04-28 23:21 | disposition home or self-care (01) ==
PROVIDERS: Physician Assistant; Emergency Provider Emergency Medicine; PCP Family Medicine
DX: T82.838A Hemorrhage due to vascular prosthetic devices, implants and grafts, initial encounter (principal); D61.9 Aplastic anemia, unspecified; E11.22 Type 2 diabetes mellitus with diabetic chronic kidney disease; I12.9 Hypertensive chronic kidney disease with stage 1 through stage 4 chronic kidney disease, or unspecified chronic kidney disease; N18.30 Chronic kidney disease, stage 3 unspecified; I25.118 Atherosclerotic heart disease of native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 pectoris; E11.42 Type 2 diabetes mellitus with diabetic polyneuropathy; E11.39 Type 2 diabetes mellitus with other diabetic ophthalmic complication; E78.2 Mixed hyperlipidemia; E88.81 Metabolic syndrome and other insulin resistance; I25.2 Old myocardial infarction; K21.9 Gastro-esophageal reflux disease without esophagitis; Z79.4 Long term (current) use of insulin; Y84.1 Kidney dialysis as the cause of abnormal reaction of the patient, or of later complication, without mention of misadventure at the time of the procedure
CPT/HCPCS: 36415; 82948; 85025; 85055; 85610; 85730; 99283